=== PATIENT | male | born 1965 | race American Indian/Alaskan Native ===

== ENCOUNTER → 2017-07-07 | Day surgery (SDC) | payer OTHER ==
[~2017-07-07] VITALS: Ht 175.3 cm; Wt 88.9 kg
[~2017-07-07] MED LIST: AMBIEN PO; DESCOVY 200-251 EACH PO; FLEXERIL PO; IBUPROFEN 800800 M1 PO; KEPPRA PORT; NEURONTIN 300300 M1 PO; TIVICAY50 MG PO; ZANAFLEX2 MG PO; ZOLOFT100 MG PO
== END ==
LOC: OR 06-02 06:28 → TBA 06-02 06:29 → OR 06-02 06:29 → TBA 05:25 → OR 09:07
DX: Z53.9 Procedure and treatment not carried out, unspecified reason (principal)